=== PATIENT | female | born 1985 | race Caucasian/White ===

== ENCOUNTER 2017-01-22 21:56 | Emergency (ER) | payer OTHER ==
[2017-01-22 22:18] VITALS: TEMP 97.7
[2017-01-22] MEDS ORDERED: ONDANSETRON 4 MG/2 ML VIAL IVP ONE (22:22)
[2017-01-22] MEDS ORDERED: NS 1,000 ML IV ONE ×2 (22:22→22:28)
--- NOTE | 2017-01-22 22:23 | EDPHY ---
H & P Stated Complaint: vomiting, and bloody diarreha HPI/ROS: HPI CHIEF COMPLAINT: Nausea, vomiting, bloody diarrhea HISTORY OF PRESENT ILLNESS: This patient very pleasant 32-year-old female, no significant medical history does not take any daily medications, she presents emergency room with nausea vomiting and diarrhea. She states initially started having watery diarrhea around 530. Then had progression of nausea with multiple episodes of nonbilious nonbloody vomit. Patient states she denies any abdominal pain or fever. She states she may have vomited about 17 times. She states 5-6 episodes of watery diarrhea. She states the last episode of diarrhea she had some bright red blood per rectum. She denies fever, chest pain , shortness of breath, abdominal pain. Does admit to nausea. No sick contacts. States she had a [employer] wrap today. Mother also reports to me that she saw some clots of blood in the diarrhea. Dark. No black tarry stools. Past Medical History: Denies any medical history Past Surgical History: Denies any surgical history Social History: Denies daily use drugs alcohol tobacco products, is a before school babysitter Family History: None could noncontributory ROS REVIEW OF SYSTEMS: A comprehensive 10 point review of systems is otherwise negative aside from elements mentioned in the history of present illness. Exam Constitutional appears well nontoxic, triage nursing summary reviewed, vital signs reviewed, awake/alert. Eyes normal conjunctivae and sclera, EOMI, PERRLA. HENT normal inspection, atraumatic, moist mucus membranes, no epistaxis, neck supple/ no meningismus, no raccoon eyes. Respiratory clear to auscultation bilaterally, normal breath sounds, no respiratory distress, no wheezing. Cardiovascular rate normal, regular rhythm, no murmur, no edema, distal pulses normal. Gastrointestinal soft, non-tender, no rebound, no guarding, normal bowel sounds, no distension, no pulsatile mass. Genitourinary no CVA tenderness. Musculoskeletal no midline vertebral tenderness, full range of motion, no calf swelling, no tenderness of extremities, no meningismus, good pulses, neurovascularly intact. Skin pink, warm, & dry, no rash, skin atraumatic. Neurologic awake, alert and oriented x 3, AAOx3, moves all 4 extremities equally, motor intact, sensory intact, CN II-XII intact, normal cerebellar, normal vision, normal speech. Psychiatric normal mood/affect. Heme/Lymph/Immune no lymphadenopathy. Differential Diagnosis: Includes but is not limited to in a particular order, electrolyte disturbance, dehydration, viral gastroenteritis, enteritis, bacterial diarrheal illness, Medical Decision Making: Plan for this patient IV establishment, IV fluid bolus , IV Zofran for nausea. Check blood work, GI pathogen panel. Occult blood. Re -evaluate. Re-evaluation: 2349: This patient is feeling much better after IV fluids and nausea medicine. Blood work reviewed shows hemoconcentration consistent with dehydration. Abdomen is soft nontender. She is not vomiting here. Stool studies have been sent. It is guaiac positive. She is not vomiting here and has not had a diarrheal episode here in the emergency room but did have a stool sample given in triage. She is requesting that drink. [id number]: Re-evaluation patient is feeling better but she does still have some mild nausea. She requesting more nausea medication. I have ordered another 4 mg of IV Zofran. I did go over strict return precautions she understands return emergency room if she develops worsening abdominal pain, fever or vomiting. Dark tarry black stool or worsening blood per rectum. I also encouraged her to call in 24 hours about her stool studies. I will give her prescription for Zofran and Flagyl. She understands to hold Flagyl until stool study results. Also referred to Gastroenterology however she understands when to return emergency room for. This time abdomen is soft nontender she has had no vomiting here. She does still complain of nausea. No fever. Source: Patient - Personal History LMP (Females 10-55): 1-7 Days Ago Current Tetanus Diphtheria and Acellular Pertussis (TDAP): Yes - Medical/Surgical History Hx Asthma: No Hx Chronic Respiratory Disease: No Hx Diabetes: No Hx Cardiac Disease: No Hx Renal Disease: No Hx Cirrhosis: No Hx Alcoholism: No Hx HIV/AIDS: No Hx Splenectomy or Spleen Trauma: No Other PMH: hemacromitosis - Social History Smoking Status: Never smoked Constitutional: Initial Vital Signs Temperature (C) 36.5 C 01/22/17 22:14 Heart Rate 90 01/22/17 22:14 Respiratory Rate 16 01/22/17 22:14 Blood Pressure 112/85 H 01/22/17 22:14 O2 Sat (%) 96 01/22/17 22:14 O2 Delivery Mode Room Air Allergies/Adverse Reactions: No Known Allergies Allergy (Unverified 01/22/17 22:14) Home Medications: Medication Instructions Recorded Control 01/22/17 Ondansetron HCl [Zofran] 4 mg PO Q4-6PRN PRN #10 tablet 01/22/17 metroNIDAZOLE [Flagyl 500 mg (*)] 500 mg PO BID #20 tab 01/23/17 Medical Decision Making - Data Points Laboratory Results: Laboratory Results 01/22/17 22:32 01/22/17 22:32 01/22/17 01/22/17 01/22/17 23:33 22:32 22:32 WBC RBC Hgb Hct MCV MCH MCHC RDW Plt Count MPV Neut % (Auto) Lymph % (Auto) [place] % (Auto) Eos % (Auto) Baso % (Auto) Nucleat RBC Rel Count Absolute Neuts (auto) Absolute Lymphs (auto) Absolute Monos (auto) Absolute Eos (auto) Absolute Basos (auto) Absolute Nucleated RBC Immature Gran % Immature Gran # PT INR APTT Sodium 138 mEq/L mEq/L (134-144) Potassium 4.2 mEq/L mEq/L (3.5-5.2) Chloride 106 mEq/L mEq/L (97-110) Carbon Dioxide 19 mEq/l L mEq/l (22-31) Anion Gap 13 mEq/L mEq/L (8-16) BUN 14 mg/dL mg/dL (7-23) Creatinine 0.7 mg/dL mg/dL (0.6-1.0) Estimated GFR > 60 Glucose 132 mg/dL H mg/dL (70-100) Calcium 9.4 mg/dL mg/dL (8.5-10.4) Total Bilirubin 1.3 mg/dL mg/dL (0.1-1.4) Conjugated Bilirubin 0.4 mg/dL mg/dL (0.0-0.5) Unconjugated Bilirubin 0.9 mg/dL mg/dL (0.0-1.1) AST 24 IU/L IU/L (14-46) ALT 24 IU/L IU/L (9-52) Alkaline Phosphatase 64 IU/L IU/L (38-126) Total Protein 7.6 g/dL g/dL (6.3-8.2) Albumin 4.8 g/dL g/dL (3.5-5.0) Lipase 98.0 IU/L IU/L (23-300) Beta HCG, Qual NEGATIVE Stool Occult Bld Scrn POSITIVE H (NEGATIVE) 01/22/17 01/22/17 22:32 22:32 WBC 12.60 10^3/uL H 10^3/uL (3.80-9.50) RBC 5.55 10^6/uL H 10^6/uL (4.18-5.33) Hgb 17.8 g/dL H g/dL (12.6-16.3) Hct 49.2 % H % (38.0-47.0) MCV 88.6 fL fL (81.5-99.8) MCH 32.1 pg pg (27.9-34.1) MCHC 36.2 g/dL g/dL (32.4-36.7) RDW 11.8 % % (11.5-15.2) Plt Count 186 10^3/uL 10^3/uL (150-400) MPV 10.4 fL fL (8.7-11.7) Neut % (Auto) 89.8 % H % (39.3-74.2) Lymph % (Auto) 4.1 % L % (15.0-45.0) [place] % (Auto) 5.3 % % (4.5-13.0) Eos % (Auto) 0.2 % L % (0.6-7.6) Baso % (Auto) 0.3 % % (0.3-1.7) Nucleat RBC Rel Count 0.0 % % (0.0-0.2) Absolute Neuts (auto) 11.31 10^3/uL H 10^3/uL (1.70-6.50) Absolute Lymphs (auto) 0.52 10^3/uL L 10^3/uL (1.00-3.00) Absolute Monos (auto) 0.67 10^3/uL 10^3/uL (0.30-0.80) Absolute Eos (auto) 0.02 10^3/uL L 10^3/uL (0.03-0.40) Absolute Basos (auto) 0.04 10^3/uL 10^3/uL (0.02-0.10) Absolute Nucleated RBC 0.00 10^3/uL 10^3/uL (0-0.01) Immature Gran % 0.3 % % (0.0-1.1) Immature Gran # 0.04 10^3/uL 10^3/uL (0.00-0.10) PT 13.8 SEC SEC (12.0-15.0) INR 1.07 (0.83-1.16) APTT 25.0 SEC SEC (23.0-38.0) Sodium Potassium Chloride Carbon Dioxide Anion Gap BUN Creatinine Estimated GFR Glucose Calcium Total Bilirubin Conjugated Bilirubin Unconjugated Bilirubin AST ALT Alkaline Phosphatase Total Protein Albumin Lipase Beta HCG, Qual Stool Occult Bld Scrn Departure - Departure Disposition: Home, Routine, Self-Care Clinical Impression: Vomiting and diarrhea Condition: Good Instructions: Dehydration (ED), Acute Nausea and Vomiting (ED), Acute Diarrhea (ED) Additional Instructions: 1. Return to the emergency room if he develops worsening vomiting, fever, bloody stools or diarrhea. Or you do not feel well. 2. Eat a bland diet for next 24-48 hours no spicy fatty greasy foods. 3. Return emergency room if you have worsening symptoms questions or concerns. 4. Please hold her antibiotics until we get your stool study results. 5. Call to the hospital or emergency room in 24 hours for stool results. Referrals: Alka Orr MD [Primary Care Provider] - As per Instructions Tristan Virgen MD, FACG [Medical Doctor] - As per Instructions Prescriptions: metroNIDAZOLE [Flagyl 500 mg (*)] 500 mg PO BID #20 tab Ondansetron HCl [Zofran] 4 mg PO Q4-6PRN PRN #10 tablet PRN Reason: Nausea/Vomiting, Use 1st
[2017-01-22 22:39] LABS: % IMMATURE GRANULYOCYTES 0.3 % (0.0-1.1); ABSOLUTE IMMATURE GRANULOCYTES 0.04 10^3/uL (0.00-0.10); ADD DIFF? NO; ADD MORPH? NO; ADD SCAN? NO; ATYPICAL LYMPHOCYTE FLAG 0 (0-99); FRAGMENT RBC FLAG 0 (0-99); HEMATOCRIT 49.2 % (38.0-47.0); HEMOGLOBIN 17.8 g/dL (12.6-16.3); LEFT SHIFT FLG 10 (0-99); LIPEMIA HEMOLYSIS FLAG 90 (0-99); MEAN CELL HEMOGLOBIN 32.1 pg (27.9-34.1); MEAN CELL HEMOGLOBIN CONCENTR. 36.2 g/dL (32.4-36.7); MEAN CELL VOLUME 88.6 fL (81.5-99.8); MEAN PLATELET VOLUME 10.4 fL (8.7-11.7); PLATELET CLUMPS FLAG 10 (0-99); PLATELET COUNT 186 10^3/uL (150-400); RED BLOOD CELL COUNT 5.55 10^6/uL (4.18-5.33); RED CELL DISTRIBUTION WIDTH 11.8 % (11.5-15.2)
[2017-01-22 22:48] LABS: INR 1.07 (0.83-1.16); PROTIME(PATIENT) 13.8 SEC (12.0-15.0)
[2017-01-22] MEDS ORDERED: HYDROmorphONE/DILAUDID 1 MG/ML SYR ONE (22:55)
[2017-01-22 23:22] LABS: ALANINE AMINOTRANSFERASE 24 IU/L (9-52); ALBUMIN 4.8 g/dL (3.5-5.0); ALKALINE PHOSPHATASE 64 IU/L (38-126); ANION GAP 13 mEq/L (8-16); ASPARTATE AMINOTRANSFERASE 24 IU/L (14-46); BILIRUBIN,TOTAL 1.3 mg/dL (0.1-1.4); BILIRUBIN-CONJUGATED 0.4 mg/dL (0.0-0.5); BILIRUBIN-UNCONJUGATED 0.9 mg/dL (0.0-1.1); CALCIUM 9.4 mg/dL (8.5-10.4); CARBON DIOXIDE 19 mEq/l (22-31); CHLORIDE 106 mEq/L (97-110); CREATININE 0.7 mg/dL (0.6-1.0); GLOMERULAR FILTRATION RATE > 60; GLUCOSE 132 mg/dL (70-100); POTASSIUM 4.2 mEq/L (3.5-5.2); SODIUM 138 mEq/L (134-144); TOTAL PROTEIN 7.6 g/dL (6.3-8.2)
[2017-01-23] MEDS ORDERED: ONDANSETRON 4 MG/2 ML VIAL IVP ONE (00:44)
[2017-01-23 01:51] VITALS: BP 127/82; PULSE 72; O2SAT 95
[2017-01-23 01:53] VITALS: RESP 16
== END 2017-01-23 01:53 | disposition home or self-care (01) ==
DX: R11.10 Vomiting, unspecified (principal); R19.7 Diarrhea, unspecified
CPT/HCPCS: 96374; J1170; J2405